=== PATIENT | female | born 1985 | race African-American/Black ===

== ENCOUNTER 2018-01-03 14:49 | Emergency (ER) | END 2018-01-03 17:24 | disposition home or self-care (01) ==

== ENCOUNTER 2018-03-05 10:08 | Emergency (ER) | END 2018-03-05 13:16 | disposition home or self-care (01) ==

== ENCOUNTER 2018-03-07 06:26 | Emergency (ER) | END 2018-03-07 09:54 | disposition home or self-care (01) ==

== ENCOUNTER 2018-03-14 17:43 | Emergency (ER) | END 2018-03-14 20:12 | disposition home or self-care (01) ==

== ENCOUNTER 2018-03-28 05:42 | Emergency (ER) | END 2018-03-28 07:12 | disposition home or self-care (01) ==

== ENCOUNTER 2018-04-05 03:49 | Emergency (ER) | END 2018-04-05 04:25 | disposition left against medical advice (07) ==